=== PATIENT | male | born 2000 | race Caucasian/White ===

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

== ENCOUNTER 2018-04-12 21:16 | Emergency (ER) | payer OTHER ==
[~2018-04-12] VITALS: Ht 167.6 cm; Wt 61.0 kg
[2018-04-12 21:26] VITALS: BP 136/54
== END 2018-04-12 22:50 | disposition left against medical advice (07) ==
LOC: ER 21:16
DX: Z53.21 Procedure and treatment not carried out due to patient leaving prior to being seen by health care provider (principal); F17.200 Nicotine dependence, unspecified, uncomplicated

== ENCOUNTER 2023-01-28 03:07 | Emergency (ER) | payer MEDICAID, OTHER ==
[~2023-01-28] VITALS: Ht 170.2 cm; Wt 91.0 kg
[2023-01-28 03:32] LABS: CLARITY URINE TURBID (CLEAR); COLOR URINE DARK YELLOW (YELLOW); KETONES URINE 3+ (NEGATIVE); LEUKOCYTE ESTERASE URINE NEGATIVE (NEGATIVE); NITRITE URINE NEGATIVE (NEGATIVE); OCCULT BLOOD URINE NEGATIVE (NEGATIVE); PROTEIN URINE 1+ (NEGATIVE); SPECIFIC GRAVITY URINE 1.032 (1.005-1.030)
[2023-01-28 03:32] LABS: BASOPHILS % 0.1 % (0.0-2.0); HEMATOCRIT. 44.3 % (42.0-52.0); HEMOGLOBIN. 15.5 g/dL (14.0-18.0); LYMPHOCYTES % 12.5 % (20.0-50.0); MEAN CORPUSCULAR HEMOGLOBIN 30.1 pg (28.0-32.0); MEAN CORPUSCULAR VOLUME 85.6 fL (80.0-94.0); MONOCYTES % 2.3 % (2.0-8.0); NEUTROPHILS % 85.1 % (40.0-76.0); PLATELET 340 x1000/uL (130-400); RED BLOOD CELL COUNT 5.17 mill/uL (4.7-6.1); RED CELL DISTRIBUTION WIDTH 13.9 % (11.6-14.6)
[2023-01-28 03:39] LABS: CHLORIDE 103 mEq/L (98-107)
[2023-01-28] MEDS ORDERED: DICYCLOMINE 10 MG/5 ML ORAL SYR PO STA (03:45)
[2023-01-28] MEDS ORDERED: VISCOUS LIDOCAINE 2% 15 ML UDC PO STA (03:45)
[2023-01-28] MEDS ORDERED: ONDANSETRON 4MG ODT PO STA (03:45)
[2023-01-28] MEDS ORDERED: MAGNESIUM/ALUMINUM HYDROXIDE/SIMETHICONE 30ML UDC PO STA (03:45)
[2023-01-28] MEDS ORDERED: FAMOTIDINE 20MG TABLET PO ONE (03:45)
[2023-01-28] MEDS ORDERED: HALOPERIDOL LACTATE 5MG/ML VIAL IM ONE (04:00)
[2023-01-28] MEDS ORDERED: SODIUM CHLORIDE 0.9% 1,000 ML IV ONE (04:00)
[2023-01-28] MEDS ORDERED: DICYCLOMINE HCL 10MG CAPSULE PO NR (04:15)
[2023-01-28] MEDS ORDERED: FAMO-135 MT (05:01)
[2023-01-28 05:26] VITALS: BP 134/68
== END 2023-01-28 05:30 | disposition home or self-care (01) ==
LOC: ER 03:07
DX: K29.70 Gastritis, unspecified, without bleeding (principal); R11.2 Nausea with vomiting, unspecified; F12.10 Cannabis abuse, uncomplicated
CPT/HCPCS: 36415; 80053; 81003; 83690; 85025; 96360; 96372; 99283; J1630; J7030; Z7610

== ENCOUNTER 2023-02-05 11:55 | Emergency (ER) | payer MEDICAID ==
[~2023-02-05] VITALS: Ht 170.2 cm; Wt 90.7 kg
[~2023-02-05 11:55] MED LIST changes: +FAMO-135 MT
[2023-02-05 12:56] LABS: BASOPHILS % 0.1 % (0.0-2.0); EOSINOPHILS % 0.2 % (0.0-5.0); HEMATOCRIT. 43.4 % (42.0-52.0); LYMPHOCYTES % 11.2 % (20.0-50.0); MEAN CORPUSCULAR HEMOGLOBIN 30.2 pg (28.0-32.0); MEAN CORPUSCULAR VOLUME 87.2 fL (80.0-94.0); MEAN PLATELET VOLUME 7.8 fl (7.4-10.4); MONOCYTES % 2.6 % (2.0-8.0); NEUTROPHILS % 85.9 % (40.0-76.0); PLATELET 308 x1000/uL (130-400); RED BLOOD CELL COUNT 4.98 mill/uL (4.7-6.1)
[2023-02-05 13:00] LABS: CHLORIDE 107 mEq/L (98-107)
[2023-02-05 13:50] LABS: CLARITY URINE CLEAR (CLEAR); COLOR URINE YELLOW (YELLOW); KETONES URINE TRACE (NEGATIVE); LEUKOCYTE ESTERASE URINE TRACE (NEGATIVE); NITRITE URINE NEGATIVE (NEGATIVE); OCCULT BLOOD URINE NEGATIVE (NEGATIVE); PROTEIN URINE TRACE (NEGATIVE); SPECIFIC GRAVITY URINE 1.025 (1.005-1.030)
[2023-02-05] MEDS ORDERED: SODIUM CHLORIDE 0.9% 1,000 ML IV ONE (14:00)
[2023-02-05] MEDS ORDERED: KETOROLAC 30MG/ML VIAL IV ONE (14:00)
[2023-02-05] MEDS ORDERED: ONDANSETRON HCL 4MG/2ML INJ IV ONE (14:00)
[2023-02-05] MEDS ORDERED: HALOPERIDOL LACTATE 5MG/ML VIAL IM ONE (15:00)
[2023-02-05 17:01] VITALS: BP 137/80
== END 2023-02-05 17:02 | disposition home or self-care (01) ==
LOC: ER 11:57
DX: R11.2 Nausea with vomiting, unspecified (principal); F12.90 Cannabis use, unspecified, uncomplicated
CPT/HCPCS: 36415; 71045; 74176; 80053; 81003; 83690; 85025; 96361; 96372; 96374; 96375; 99285; J1630; J1885; J2405; J7030

== ENCOUNTER 2023-02-07 12:11 | Emergency (ER) | payer MEDICAID | END 2023-02-07 12:56 | disposition left against medical advice (07) | LOC: ER 12:11 | DX: Z53.21 Procedure and treatment not carried out due to patient leaving prior to being seen by health care provider (principal) | CPT/HCPCS: 99281 ==

== ENCOUNTER 2023-04-22 11:23 | Emergency (ER) | payer SELFPAY ==
[~2023-04-22] VITALS: Ht 167.6 cm; Wt 86.4 kg
[2023-04-22 11:58] VITALS: BP 122/95; PULSE 66; RESP 18; TEMP 98.7; O2SAT 100
[2023-04-22 12:23] LABS: BASOPHILS % 0.2 % (0.0-2.0); EOSINOPHILS % 0.2 % (0.0-5.0); HEMATOCRIT. 44.2 % (42.0-52.0); HEMOGLOBIN. 15.4 g/dL (14.0-18.0); LYMPHOCYTES % 15.6 % (20.0-50.0); MEAN CORPUSCULAR HEMOGLOBIN 30.9 pg (28.0-32.0); MEAN CORPUSCULAR HGB CONC 34.7 g/dL (31.0-37.0); RED BLOOD CELL COUNT 4.97 mill/uL (4.7-6.1); RED CELL DISTRIBUTION WIDTH 14.6 % (11.6-14.6); WHITE BLOOD COUNT 14.2 x1000/uL (4.5-11.0)
[2023-04-22 12:30] LABS: CHLORIDE 104 mEq/L (98-107); INDEX HEMOLYSI 1 (1-3); INDEX ICTERIC 1 (1-4); INDEX LIPEMIC 1 (1-3); SODIUM 136 mEq/L (136-145)
[2023-04-22 12:39] LABS: ALANINE AMINOTRANSFERASE 100 IU/L (13-61); ALBUMIN 4.4 g/dL (3.4-5.0); ASPARTATE AMINOTRANSFERASE 40 IU/L (15-37); BILIRUBIN TOTAL 0.9 mg/dL (0.1-1.0); CARBON DIOXIDE 21 mEq/L (21-32); CREATININE 0.8 mg/dL (0.6-1.3); DIFFERENTIAL COMMENT 1; GLUCOSE 138 mg/dL (70-105); UREA NITROGEN BLOOD 16 mg/dL (7-21)
[2023-04-22 13:04] LABS: PLATELET 335 x1000/uL (130-400)
[2023-04-22] MEDS ORDERED: ONDANSETRON HCL 4MG/2ML INJ IV STA (13:22)
[2023-04-22] MEDS ORDERED: FAMOTIDINE 20MG/2ML VIAL IV STA (13:22)
[2023-04-22] MEDS ORDERED: SODIUM CHLORIDE 0.9% 1,000 ML IV ONE (13:30)
== END 2023-04-22 14:51 | disposition left against medical advice (07) ==
LOC: ER 11:23
DX: R11.2 Nausea with vomiting, unspecified (principal); R19.7 Diarrhea, unspecified; F12.10 Cannabis abuse, uncomplicated
CPT/HCPCS: 99283; 80053; 83690; 85025; 36415; J7030

== ENCOUNTER 2023-09-06 22:18 | Emergency (ER) | payer SELFPAY ==
[~2023-09-06] VITALS: Ht 177.8 cm; Wt 90.0 kg
[2023-09-06 22:30] VITALS: BP 132/75; PULSE 68; RESP 18; TEMP 98.4; O2SAT 98
== END 2023-09-07 06:17 | disposition left against medical advice (07) ==
LOC: ER 22:18
DX: R10.9 Unspecified abdominal pain (principal); Z53.21 Procedure and treatment not carried out due to patient leaving prior to being seen by health care provider
CPT/HCPCS: 99281; 99283

== ENCOUNTER 2023-09-08 08:01 | Inpatient (IN) | payer SELFPAY ==
[~2023-09-08] VITALS: Ht 170.2 cm; Wt 74.8 kg
[2023-09-08] MEDS ORDERED: KETOROLAC 30MG/ML VIAL IV STA (08:15)
[2023-09-08] MEDS ORDERED: ONDANSETRON HCL 4MG/2ML INJ IV STA (08:15)
[2023-09-08 08:17] VITALS: O2SAT 98
[2023-09-08] MEDS ORDERED: SODIUM CHLORIDE 0.9% 1000ML BAG (SEPSIS BOLUS) IV ONE (08:30)
[2023-09-08 10:31] LABS: BASOPHILS % 0.1 % (0.0-2.0); HEMATOCRIT. 33.7 % (42.0-52.0); HEMOGLOBIN. 11.1 g/dL (14.0-18.0); LYMPHOCYTES % 17.8 % (20.0-50.0); MEAN CORPUSCULAR HEMOGLOBIN 29.7 pg (28.0-32.0); MEAN CORPUSCULAR HGB CONC 32.9 g/dL (31.0-37.0); MEAN PLATELET VOLUME 7.8 fl (7.4-10.4); MONOCYTES % 5.8 % (2.0-8.0); NEUTROPHILS % 76.3 % (40.0-76.0); PLATELET 392 x1000/uL (130-400); RED BLOOD CELL COUNT 3.75 mill/uL (4.7-6.1); WHITE BLOOD COUNT 16.3 x1000/uL (4.5-11.0)
[2023-09-08 10:41] LABS: INR 1.2; PROTHROMBIN TIME 12.6 sec (9.6-11.0)
[2023-09-08 10:48] LABS: ALANINE AMINOTRANSFERASE 43 IU/L (10-49); ALBUMIN 3.6 g/dL (3.2-4.8); ASPARTATE AMINOTRANSFERASE 27 IU/L (<34); BILIRUBIN TOTAL 0.6 mg/dL (0.1-1.0); CALCIUM 8.3 mg/dL (8.7-10.4); CARBON DIOXIDE 27 mEq/L (21-32); CHLORIDE 105 mEq/L (98-107); CREATININE 0.6 mg/dL (0.6-1.3); GLUCOSE 103 mg/dL (70-105); SODIUM 138 mEq/L (136-145); UREA NITROGEN BLOOD 37 mg/dL (9-23)
[2023-09-08 10:49] LABS: PROTEIN TOTAL 5.6 g/dL (6.0-8.3)
[2023-09-08 10:51] LABS: LACTIC ACID 2.7 mmol/L (0.4-2.0); TROPONIN I HIGH SENSITIVITY 90 ng/L (3.0-53)
[2023-09-08] MEDS ORDERED: PIPERACILLIN/TAZ 3.375G PREMIX 50 ML IV ONE (11:00)
[2023-09-08] MEDS ORDERED: VANCOMYCIN 1G PREMIX 200 ML IV ONE (11:00)
[2023-09-08] MEDS ORDERED: KETOROLAC 30MG/ML VIAL IV SCH (11:30)
[2023-09-08] MEDS ORDERED: ONDANSETRON HCL 4MG/2ML INJ IV SCH (11:30)
[2023-09-08 13:56] LABS: CLARITY URINE CLEAR (CLEAR); COLOR URINE YELLOW (YELLOW); GLUCOSE URINE NEGATIVE (NEGATIVE); KETONES URINE 1+ (NEGATIVE); LEUKOCYTE ESTERASE URINE NEGATIVE (NEGATIVE); NITRITE URINE NEGATIVE (NEGATIVE); OCCULT BLOOD URINE NEGATIVE (NEGATIVE); PH URINE 6.5 (4.5-8.0); PROTEIN URINE TRACE (NEGATIVE); SPECIFIC GRAVITY URINE 1.026 (1.005-1.030)
[2023-09-08 17:29] LABS: BACTERIA URINE NONE SEEN; RBC URINE NONE SEEN /hpf (0-2); SQUAMOUS EPITHELIAL CELL URINE NONE SEEN /lpf (RARE/1+); WBC URINE NONE SEEN /hpf (0-2)
[2023-09-08] MEDS ORDERED: DIPHENHYDRAMINE 50MG/ML VIAL IV PRN (22:30)
[2023-09-08] MEDS ORDERED: ACETAMINOPHEN 325MG TABLET PO PRN ×2 (22:30)
[2023-09-09] MEDS: PANTOPRAZOLE SODIUM 40 MG/VIAL IV SCH ×3 (07:10→21:23)
[2023-09-09] MEDS: KETOROLAC 30MG/ML VIAL IV PRN ×2 (07:11→14:08)
[2023-09-09] MEDS: ONDANSETRON HCL 4MG/2ML INJ IV PRN ×2 (07:11→14:08)
[2023-09-09] MEDS: DEXT 5%/0.9% NACL 1,000 ML IV SCH ×4 (07:16→18:30)
[2023-09-09 08:00] VITALS: BP 134/78; PULSE 89; RESP 18; TEMP 96.6
[2023-09-09 11:00] VITALS: BP 134/78; PULSE 89; RESP 18; TEMP 96.6
[2023-09-09 11:14] LABS: BASOPHILS % 0.1 % (0.0-2.0); HEMATOCRIT. 26.4 % (42.0-52.0); LYMPHOCYTES % 11.3 % (20.0-50.0); MEAN CORPUSCULAR HEMOGLOBIN 30.2 pg (28.0-32.0); MEAN CORPUSCULAR HGB CONC 33.9 g/dL (31.0-37.0); MEAN CORPUSCULAR VOLUME 89.1 fL (80.0-94.0); MEAN PLATELET VOLUME 7.9 fl (7.4-10.4); MONOCYTES % 2.9 % (2.0-8.0); NEUTROPHILS % 85.7 % (40.0-76.0); PLATELET 312 x1000/uL (130-400); RED BLOOD CELL COUNT 2.97 mill/uL (4.7-6.1); RED CELL DISTRIBUTION WIDTH 13.8 % (11.6-14.6); WHITE BLOOD COUNT 9.8 x1000/uL (4.5-11.0)
[2023-09-09 12:00] VITALS: BP 124/76; PULSE 77; RESP 19; TEMP 98.4
[2023-09-09 12:10] LABS: CALCIUM 8.5 mg/dL (8.7-10.4); CARBON DIOXIDE 25 mEq/L (21-32); CHLORIDE 106 mEq/L (98-107); CREATININE 0.7 mg/dL (0.6-1.3); GLUCOSE 132 mg/dL (70-105); PHOSPHORUS 1.3 mg/dL (2.5-4.9); POTASSIUM 3.7 mEq/L (3.5-5.1); SODIUM 138 mEq/L (136-145); TROPONIN I HIGH SENSITIVITY 10 ng/L (3.0-53); UREA NITROGEN BLOOD 17 mg/dL (9-23)
[2023-09-09 16:00] VITALS: BP 131/62; PULSE 86; RESP 18; TEMP 98.8
[2023-09-09 20:00] VITALS: BP 147/82; PULSE 86; RESP 20; TEMP 98.1
[2023-09-09] MEDS ORDERED: MAGNESIUM 2 G PREMIX 50 ML IV NR (20:00)
[2023-09-09] MEDS ORDERED: POTASSIUM PHOS,M-BASIC-D-BASIC 30 MMOL in SODIUM CHLORIDE 0.9% 500 ML IV SCH (21:00)
[2023-09-10] VITALS: BP 138/78; PULSE 80; RESP 20; TEMP 98.4
[2023-09-10] MEDS: DEXT 5%/0.9% NACL 1,000 ML IV SCH ×2 (01:19→08:34)
[2023-09-10 04:00] VITALS: BP 130/71; PULSE 70; RESP 20; TEMP 98.1
[2023-09-10] MEDS: ONDANSETRON HCL 4MG/2ML INJ IV PRN (05:41)
[2023-09-10] MEDS: KETOROLAC 30MG/ML VIAL IV PRN (05:41)
[2023-09-10 05:53] LABS: BASOPHILS % 0.1 % (0.0-2.0); EOSINOPHILS % 0.1 % (0.0-5.0); HEMATOCRIT. 24.9 % (42.0-52.0); HEMOGLOBIN. 8.5 g/dL (14.0-18.0); LYMPHOCYTES % 26.9 % (20.0-50.0); MEAN CORPUSCULAR HEMOGLOBIN 30.9 pg (28.0-32.0); MEAN CORPUSCULAR HGB CONC 34.4 g/dL (31.0-37.0); MEAN CORPUSCULAR VOLUME 89.8 fL (80.0-94.0); MEAN PLATELET VOLUME 7.9 fl (7.4-10.4); MONOCYTES % 6.3 % (2.0-8.0); NEUTROPHILS % 66.6 % (40.0-76.0); PLATELET 302 x1000/uL (130-400); RED BLOOD CELL COUNT 2.77 mill/uL (4.7-6.1); RED CELL DISTRIBUTION WIDTH 14.2 % (11.6-14.6); WHITE BLOOD COUNT 10.4 x1000/uL (4.5-11.0)
[2023-09-10 06:39] LABS: CALCIUM 8.2 mg/dL (8.7-10.4); CARBON DIOXIDE 28 mEq/L (21-32); CHLORIDE 108 mEq/L (98-107); CREATININE 0.7 mg/dL (0.6-1.3); GLUCOSE 114 mg/dL (70-105); PHOSPHORUS 4.6 mg/dL (2.5-4.9); POTASSIUM 3.4 mEq/L (3.5-5.1); SODIUM 142 mEq/L (136-145); UREA NITROGEN BLOOD 14 mg/dL (9-23)
[2023-09-10 08:00] VITALS: BP 124/66; PULSE 85; RESP 19; TEMP 97.7
[2023-09-10] MEDS: PANTOPRAZOLE SODIUM 40 MG/VIAL IV SCH (08:34)
[2023-09-10] MEDS ORDERED: POTASSIUM CHLORIDE 20MEQ TABLET SR PO NR (10:15)
[2023-09-10 12:00] VITALS: BP 133/72; PULSE 94; RESP 19; TEMP 95.2
== END 2023-09-10 14:14 | disposition left against medical advice (07) | DRG 48 ==
LOC: ER 08:04 → MICUSO 11:51 → EDBEDREQ 11:55 → EDBEDREQSVC 11:55 → 6EST 09-09 08:07
PROVIDERS: ADMIT Internal Medicine; ATTEND Internal Medicine
DX: G90.8 Other disorders of autonomic nervous system (principal); E83.39 Other disorders of phosphorus metabolism; R65.10 Systemic inflammatory response syndrome (SIRS) of non-infectious origin without acute organ dysfunction; K52.9 Noninfective gastroenteritis and colitis, unspecified; E83.42 Hypomagnesemia; F12.90 Cannabis use, unspecified, uncomplicated; K21.9 Gastro-esophageal reflux disease without esophagitis; K56.41 Fecal impaction; Z53.29 Procedure and treatment not carried out because of patient's decision for other reasons
CPT/HCPCS: 36415; 71045; 74176; 80048; 80053; 81003; 83605; 83735; 84100; 84145; 84484; 85025; 93005; 99291; C9113; J1885; J2405; J2543; J3370; J3475; J3490; J7030; J7040

== ENCOUNTER 2023-09-17 15:39 | Emergency (ER) | payer SELFPAY ==
[~2023-09-17] VITALS: Ht 175.3 cm; Wt 68.0 kg
[2023-09-17 15:43] VITALS: TEMP 98; O2SAT 100
[2023-09-17 16:30] LABS: HEMATOCRIT. 27.7 % (42.0-52.0); HEMOGLOBIN. 8.8 g/dL (14.0-18.0); MEAN CORPUSCULAR HEMOGLOBIN 28.4 pg (28.0-32.0); MEAN CORPUSCULAR HGB CONC 31.7 g/dL (31.0-37.0); MEAN CORPUSCULAR VOLUME 89.5 fL (80.0-94.0); MEAN PLATELET VOLUME 6.8 fl (7.4-10.4); PLATELET 679 x1000/uL (130-400); RED CELL DISTRIBUTION WIDTH 15.2 % (11.6-14.6); WHITE BLOOD COUNT 9.8 x1000/uL (4.5-11.0)
[2023-09-17 16:32] LABS: DIFFERENTIAL COMMENT 1
[2023-09-17 16:45] LABS: ALANINE AMINOTRANSFERASE 40 IU/L (10-49); ALBUMIN 4.4 g/dL (3.2-4.8); ASPARTATE AMINOTRANSFERASE 31 IU/L (<34); BILIRUBIN TOTAL 0.5 mg/dL (0.1-1.0); CALCIUM 9.3 mg/dL (8.7-10.4); CARBON DIOXIDE 21 mEq/L (21-32); CHLORIDE 108 mEq/L (98-107); CREATININE 0.6 mg/dL (0.6-1.3); GLUCOSE 115 mg/dL (70-105); POTASSIUM 3.7 mEq/L (3.5-5.1); PROTEIN TOTAL 7.3 g/dL (6.0-8.3); SODIUM 139 mEq/L (136-145); UREA NITROGEN BLOOD 10 mg/dL (9-23)
[2023-09-17 16:59] LABS: PLATELET ESTIMATE INCREASED
[2023-09-17] MEDS ORDERED: ONDANSETRON HCL 4MG/2ML INJ IV STA (20:22)
[2023-09-17] MEDS ORDERED: KETOROLAC 30MG/ML VIAL IV STA (20:22)
[2023-09-17] MEDS ORDERED: SODIUM CHLORIDE 0.9% 1,000 ML IV ONE (20:30)
[2023-09-17 20:45] VITALS: BP 142/76; PULSE 71; RESP 16
[2023-09-17] MEDS ORDERED: ONDA4TAB50 MT ×2 (22:26→22:56)
[2023-09-17] MEDS ORDERED: HALOPERIDOL LACTATE 5MG/ML VIAL IM ONE (22:30)
== END 2023-09-17 23:05 | disposition home or self-care (01) ==
LOC: ER 15:39
DX: K21.9 Gastro-esophageal reflux disease without esophagitis (principal); R10.9 Unspecified abdominal pain; R11.2 Nausea with vomiting, unspecified; F12.90 Cannabis use, unspecified, uncomplicated
CPT/HCPCS: 80053; 80320; 83690; 85025; 36415; 74176; 96361; 96372; 96374; 96375; 99285; J1630; J1885; J2405; J7030; Z7610 ×3; G0480

== ENCOUNTER 2023-12-14 17:09 | Emergency (ER) | payer MEDICAID ==
[~2023-12-14] VITALS: Ht 170.2 cm; Wt 68.0 kg
[~2023-12-14 17:09] MED LIST changes: +ONDA4TAB50 MT
[2023-12-14 17:12] VITALS: BP 138/64; PULSE 67; RESP 18; TEMP 97.7; O2SAT 100
[2023-12-14] MEDS ORDERED: ONDANSETRON HCL 4MG/2ML INJ IV ONE (17:45)
[2023-12-14] MEDS ORDERED: FAMOTIDINE 20MG/2ML VIAL IV ONE (17:45)
[2023-12-14] MEDS ORDERED: SODIUM CHLORIDE 0.9% 1,000 ML IV ONE (17:45)
[2023-12-14] MEDS ORDERED: DICYCLOMINE HCL 10MG/ML 2ML VIAL IM ONE (17:45)
[2023-12-14] MEDS ORDERED: DICYCLOMINE HCL 10MG CAPSULE PO NR (18:00)
== END 2023-12-14 22:20 | disposition left against medical advice (07) ==
LOC: ER 17:09
DX: R11.2 Nausea with vomiting, unspecified (principal); K21.9 Gastro-esophageal reflux disease without esophagitis; F12.10 Cannabis abuse, uncomplicated
CPT/HCPCS: 99283; J7030; J0500

== ENCOUNTER 2024-04-28 13:44 | Emergency (ER) | payer MEDICAID ==
[~2024-04-28] VITALS: Ht 167.6 cm; Wt 73.0 kg
[2024-04-28 14:01] VITALS: O2SAT 100
[2024-04-28 14:53] LABS: BASOPHILS % 0.5 % (0.0-2.0); EOSINOPHILS % 0.2 % (0.0-5.0); HEMATOCRIT. 34.7 % (42.0-52.0); HEMOGLOBIN. 10.4 g/dL (14.0-18.0); LYMPHOCYTES % 13.9 % (20.0-50.0); MEAN CORPUSCULAR HEMOGLOBIN 19.7 pg (28.0-32.0); MEAN CORPUSCULAR HGB CONC 30.1 g/dL (31.0-37.0); MEAN CORPUSCULAR VOLUME 65.6 fL (80.0-94.0); MEAN PLATELET VOLUME 7.4 fl (7.4-10.4); MONOCYTES % 2.9 % (2.0-8.0); NEUTROPHILS % 82.5 % (40.0-76.0); PLATELET 389 x1000/uL (130-400); RED CELL DISTRIBUTION WIDTH 19.3 % (11.6-14.6); WHITE BLOOD COUNT 7.9 x1000/uL (4.5-11.0)
[2024-04-28] MEDS: HALOPERIDOL LACTATE 5MG/ML VIAL IM ONE (14:54)
[2024-04-28 14:55] LABS: ADD RBC MORPHOLOGY YES; DIFFERENTIAL COMMENT 1
[2024-04-28] MEDS: ONDANSETRON HCL 4MG/2ML INJ IV ONE (14:55)
[2024-04-28] MEDS: SODIUM CHLORIDE 0.9% 1,000 ML IV ONE (14:55)
[2024-04-28 15:01] LABS: CHLORIDE 108 mEq/L (98-107); POTASSIUM 3.2 mEq/L (3.5-5.1); SODIUM 139 mEq/L (136-145)
[2024-04-28 15:02] LABS: CALCIUM 9.8 mg/dL (8.7-10.4); CARBON DIOXIDE 22 mEq/L (21-32)
[2024-04-28 15:07] LABS: CREATININE 0.9 mg/dL (0.6-1.3); GLUCOSE 121 mg/dL (70-105); UREA NITROGEN BLOOD 12 mg/dL (9-23)
[2024-04-28 15:09] LABS: ALANINE AMINOTRANSFERASE 48 IU/L (10-49); ALBUMIN 4.9 g/dL (3.2-4.8); ASPARTATE AMINOTRANSFERASE 35 IU/L (<34); BILIRUBIN DIRECT 0.1 mg/dL (<=3.0); BILIRUBIN TOTAL 0.5 mg/dL (0.1-1.0); PROTEIN TOTAL 7.5 g/dL (6.0-8.3)
[2024-04-28 15:25] LABS: ETHANOL BLOOD < 10 mg/dL (<10)
[2024-04-28 15:42] LABS: ANISOCYTOSIS 2+; HYPOCHROMASIA 1+; MICROCYTOSIS 3+; PLATELET ESTIMATE NORMAL
[2024-04-28 15:57] VITALS: BP 124/67; PULSE 88; RESP 18; TEMP 36.78072; O2SAT 98
== END 2024-04-28 16:35 | disposition home or self-care (01) ==
LOC: ER 13:51
DX: F12.188 Cannabis abuse with other cannabis-induced disorder (principal)
CPT/HCPCS: 80076; 80048; 80320; 83690; 85025; 36415; 96372; 96374; 99283; J1630; J2405; J7030; Z7610; G0480

== ENCOUNTER 2024-06-08 11:55 | Emergency (ER) | payer MEDICAID ==
[~2024-06-08] VITALS: Ht 170.2 cm; Wt 81.6 kg
[2024-06-08 12:14] VITALS: BP 136/80; PULSE 82; RESP 16; TEMP 97.7; O2SAT 100
[2024-06-08] MEDS ORDERED: ONDANSETRON 4MG ODT PO STA (12:48)
== END 2024-06-08 18:54 | disposition left against medical advice (07) ==
LOC: ER 13:23
DX: R11.2 Nausea with vomiting, unspecified (principal); F12.90 Cannabis use, unspecified, uncomplicated
CPT/HCPCS: 99283

== ENCOUNTER 2024-08-07 08:07 | Emergency (ER) | payer MEDICAID ==
[~2024-08-07] VITALS: Ht 170.2 cm; Wt 77.0 kg
[2024-08-07 08:17] VITALS: O2SAT 98
[2024-08-07] MEDS: ONDANSETRON 4MG ODT PO ONE (08:42)
[2024-08-07 08:44] LABS: BASOPHILS % 0.2 % (0.0-2.0); EOSINOPHILS % 0.8 % (0.0-5.0); HEMATOCRIT. 36.8 % (42.0-52.0); HEMOGLOBIN. 11.5 g/dL (14.0-18.0); LYMPHOCYTES % 27.8 % (20.0-50.0); MEAN CORPUSCULAR HEMOGLOBIN 22.3 pg (28.0-32.0); MEAN CORPUSCULAR HGB CONC 31.2 g/dL (31.0-37.0); MEAN CORPUSCULAR VOLUME 71.5 fL (80.0-94.0); MEAN PLATELET VOLUME 7.2 fl (7.4-10.4); NEUTROPHILS % 64.2 % (40.0-76.0); PLATELET 385 x1000/uL (130-400); RED BLOOD CELL COUNT 5.15 mill/uL (4.7-6.1); RED CELL DISTRIBUTION WIDTH 24.7 % (11.6-14.6); WHITE BLOOD COUNT 10.4 x1000/uL (4.5-11.0)
[2024-08-07 08:48] LABS: ADD RBC MORPHOLOGY YES; DIFFERENTIAL COMMENT 1
[2024-08-07 08:49] LABS: CHLORIDE 107 mEq/L (98-107); POTASSIUM 3.8 mEq/L (3.5-5.1); SODIUM 142 mEq/L (136-145)
[2024-08-07 08:50] LABS: CALCIUM 9.4 mg/dL (8.7-10.4); CARBON DIOXIDE 30 mEq/L (21-32)
[2024-08-07 08:55] LABS: GLUCOSE 107 mg/dL (70-105); UREA NITROGEN BLOOD 12 mg/dL (9-23)
[2024-08-07 08:57] LABS: ALANINE AMINOTRANSFERASE 53 IU/L (10-49); ALBUMIN 4.4 g/dL (3.2-4.8); ASPARTATE AMINOTRANSFERASE 31 IU/L (<34)
[2024-08-07 08:58] LABS: BILIRUBIN TOTAL 0.3 mg/dL (0.1-1.0); PROTEIN TOTAL 7.1 g/dL (6.0-8.3)
[2024-08-07 09:05] LABS: BILIRUBIN DIRECT < 0.1 mg/dL (<=3.0)
[2024-08-07 09:06] LABS: ANISOCYTOSIS 4+; MICROCYTOSIS 2+; PLATELET ESTIMATE NORMAL
[2024-08-07] MEDS ORDERED: ONDA-239 PO (09:12)
[2024-08-07] MEDS ORDERED: ONDANSETRON HCL 4MG/2ML INJ IM ONE (09:45)
[2024-08-07] MEDS: HALOPERIDOL LACTATE 5MG/ML VIAL IM ONE (10:05)
[2024-08-07] MEDS: DIPHENHYDRAMINE 50MG/ML VIAL IV ONE (10:26)
[2024-08-07 11:48] VITALS: BP 134/73; PULSE 67; RESP 14; TEMP 36.33624; O2SAT 98
== END 2024-08-07 11:52 | disposition home or self-care (01) ==
LOC: ER 08:07
DX: R11.2 Nausea with vomiting, unspecified (principal); F12.10 Cannabis abuse, uncomplicated
CPT/HCPCS: 80076; 80048; 83690; 85025; 36415; 96372; 96374; 99284; Q0162; J1200; J1630; Z7610 ×2

== ENCOUNTER 2024-08-12 14:18 | Emergency (ER) | payer MEDICAID ==
[~2024-08-12] VITALS: Ht 165.1 cm; Wt 65.0 kg
[~2024-08-12 14:18] MED LIST changes: +ONDA-239 PO
[2024-08-12 14:20] VITALS: BP 172/97; PULSE 71; RESP 18; TEMP 98.5; O2SAT 98
== END 2024-08-12 15:00 | disposition left against medical advice (07) ==
LOC: ER 14:18
DX: R10.9 Unspecified abdominal pain (principal); Z53.21 Procedure and treatment not carried out due to patient leaving prior to being seen by health care provider

== ENCOUNTER 2024-10-22 08:51 | Emergency (ER) | payer MEDICAID ==
[~2024-10-22] VITALS: Ht 175.3 cm; Wt 66.0 kg
[2024-10-22 09:11] VITALS: BP 143/84; PULSE 71; RESP 18; TEMP 36.6; O2SAT 100
[2024-10-22] MEDS ORDERED: ONDANSETRON 4MG ODT PO ONE (09:45)
[2024-10-22] MEDS ORDERED: ACETAMINOPHEN 325MG TABLET PO ONE (09:45)
== END 2024-10-22 12:39 | disposition left against medical advice (07) ==
LOC: ER 09:00
DX: R10.84 Generalized abdominal pain (principal); F12.10 Cannabis abuse, uncomplicated
CPT/HCPCS: 99284; 74176; Q0162

== ENCOUNTER 2025-04-20 17:45 | Emergency (ER) | payer MEDICAID ==
[~2025-04-20] VITALS: Ht 170.2 cm; Wt 80.0 kg
[2025-04-20 17:50] VITALS: O2SAT 100
[2025-04-20] MEDS: PANTOPRAZOLE SODIUM 40 MG/VIAL IV ONE (19:13)
[2025-04-20] MEDS: KETOROLAC 15MG/ML VIAL IV ONE (19:13)
[2025-04-20] MEDS: SODIUM CHLORIDE 0.9% 1,000 ML IV ONE (19:13)
[2025-04-20] MEDS: HALOPERIDOL LACTATE 5MG/ML VIAL IM ONE (19:13)
[2025-04-20 19:40] LABS: BASOPHILS % 0.1 % (0.0-2.0); EOSINOPHILS % 0.0 % (0.0-5.0); HEMATOCRIT. 32.3 % (42.0-52.0); HEMOGLOBIN. 10.4 g/dL (14.0-18.0); LYMPHOCYTES % 9.2 % (20.0-50.0); MEAN PLATELET VOLUME 7.1 fl (7.4-10.4); MONOCYTES % 1.9 % (2.0-8.0); NEUTROPHILS % 88.8 % (40.0-76.0); PLATELET 418 x1000/uL (130-400); RED BLOOD CELL COUNT 4.23 mill/uL (4.7-6.1); RED CELL DISTRIBUTION WIDTH 18.4 % (11.6-14.6)
[2025-04-20 19:54] LABS: CREATININE 0.9 mg/dL (0.6-1.3)
[2025-04-20 19:55] LABS: ETHANOL BLOOD < 10 mg/dL (<10); UREA NITROGEN BLOOD 12 mg/dL (9-23)
[2025-04-20 19:56] LABS: ASPARTATE AMINOTRANSFERASE 43 IU/L (<34)
[2025-04-20 19:57] LABS: BILIRUBIN DIRECT 0.1 mg/dL (<=3.0); BILIRUBIN TOTAL 0.4 mg/dL (0.1-1.0); PROTEIN TOTAL 7.2 g/dL (6.0-8.3)
[2025-04-20] MEDS ORDERED: METO-293 MT (21:54)
[2025-04-20 22:31] VITALS: BP 127/62; PULSE 82; RESP 15; TEMP 36.6; O2SAT 98
== END 2025-04-20 22:31 | disposition home or self-care (01) ==
LOC: ER 17:45
DX: F12.90 Cannabis use, unspecified, uncomplicated (principal); Z79.899 Other long term (current) drug therapy; Z87.19 Personal history of other diseases of the digestive system
CPT/HCPCS: 80076; 80048; 80320; 83690; 85025; 36415; 74176; 96361; 96372; 96374; 96375; 99285; J1630; J1885; J2470; J7030; Z7610; G0480